=== PATIENT | female | born 1960 | race African-American/Black ===

== ENCOUNTER → 2018-10-02 | Outpatient (CLI) | payer OTHER ==
[2018-10-02 09:33] LABS: ABSOLUTE EOSINOPHILS # (AUTO) 0.1 10^3/uL (0.0-0.6); ABSOLUTE LYMPHOCYTES (AUTO) 1.5 10^3/uL (0.5-4.7); ABSOLUTE MONOCYTES (AUTO) 0.3 10^3/uL (0.1-1.4); ABSOLUTE NEUT (AUTO) 2.3 10^3/uL (1.7-8.2); BASOPHILS % (AUTO) 1.2 % (0-2); EOSINOPHILS % (AUTO) 2.4 % (0-6); HEMATOCRIT 31.7 % (36.0-47.0); HEMOGLOBIN 10.5 g/dL (12.0-15.5); LYMPHOCYTES % (AUTO) 35.8 % (13-45); MEAN CORPUSCULAR HEMOGLOBIN 27.9 pg (27.0-33.4); MEAN CORPUSCULAR HGB CONC 33.1 g/dL (32.0-36.0); MEAN CORPUSCULAR VOLUME 84 fl (80-97); MONOCYTES % (AUTO) 7.1 % (3-13); PLATELET COUNT 266 10^3/uL (150-450); RED BLOOD COUNT 3.76 10^6/uL (3.72-5.28); RED CELL DISTRIBUTION WIDTH 14.7 % (11.5-14.0); SEGMENTED NEUTROPHILS % (AUTO) 53.5 % (42-78); TOTAL CELLS COUNTED % (AUTO) 100 %; WHITE BLOOD COUNT 4.3 10^3/uL (4.0-10.5)
[2018-10-02 09:57] LABS: ALBUMIN 3.7 g/dL (3.5-5.0); ALKALINE PHOSPHATASE 74 U/L (38-126); ANION GAP 6 (5-19); ASPARTATE AMINO TRANSFERASE 20 U/L (14-36); BILIRUBIN,DIRECT 0.3 mg/dL (0.0-0.4); BILIRUBIN,TOTAL 0.4 mg/dL (0.2-1.3); BLOOD UREA NITROGEN 15 mg/dL (7-20); CARBON DIOXIDE 30 mmol/L (22-30); CHLORIDE 106 mmol/L (98-107); CHOLESTEROL 178.28 mg/dL (0-200); GLUCOSE 110 mg/dL (75-110); POTASSIUM 4.7 mmol/L (3.6-5.0); TOTAL PROTEIN 6.9 g/dL (6.3-8.2); TRIGLYCERIDES 66 mg/dL (<150)
[2018-10-02 10:07] LABS: DIRECT LDL 126 mg/dL (<100)
== END ==
LOC: CCC 08:43
DX: Z00.00 Encounter for general adult medical examination without abnormal findings (principal)
CPT/HCPCS: 36415; 80053; 80061; 83036; 84443; 85025

== ENCOUNTER → 2018-10-24 | Outpatient (CLI) | payer OTHER ==
[2018-10-24 10:26] LABS: ABSOLUTE EOSINOPHILS # (AUTO) 0.1 10^3/uL (0.0-0.6); ABSOLUTE LYMPHOCYTES (AUTO) 1.6 10^3/uL (0.5-4.7); ABSOLUTE MONOCYTES (AUTO) 0.3 10^3/uL (0.1-1.4); EOSINOPHILS % (AUTO) 2.8 % (0-6); HEMATOCRIT 32.1 % (36.0-47.0); HEMOGLOBIN 10.6 g/dL (12.0-15.5); LYMPHOCYTES % (AUTO) 39.4 % (13-45); MEAN CORPUSCULAR HEMOGLOBIN 27.7 pg (27.0-33.4); MEAN CORPUSCULAR VOLUME 84 fl (80-97); MONOCYTES % (AUTO) 8.1 % (3-13); PLATELET COUNT 262 10^3/uL (150-450); RED BLOOD COUNT 3.83 10^6/uL (3.72-5.28); RED CELL DISTRIBUTION WIDTH 14.5 % (11.5-14.0); SEGMENTED NEUTROPHILS % (AUTO) 48.7 % (42-78); TOTAL CELLS COUNTED % (AUTO) 100 %; WHITE BLOOD COUNT 4.1 10^3/uL (4.0-10.5)
[2018-10-24 11:32] LABS: FOLATE 11.7 ng/mL (>2.76)
== END ==
LOC: OD 09:24
DX: D64.9 Anemia, unspecified (principal)
CPT/HCPCS: 36415; 82607; 82746; 83090; 83921; 85025

== ENCOUNTER → 2018-12-18 | Outpatient (CLI) | payer OTHER ==
[2018-12-18 13:11] LABS: ABSOLUTE BASOPHILS # (AUTO) 0.1 10^3/uL (0.0-0.2); ABSOLUTE EOSINOPHILS # (AUTO) 0.1 10^3/uL (0.0-0.6); ABSOLUTE MONOCYTES (AUTO) 0.4 10^3/uL (0.1-1.4); ABSOLUTE NEUT (AUTO) 2.5 10^3/uL (1.7-8.2); BASOPHILS % (AUTO) 1.2 % (0-2); EOSINOPHILS % (AUTO) 2.5 % (0-6); HEMATOCRIT 32.1 % (36.0-47.0); HEMOGLOBIN 10.7 g/dL (12.0-15.5); LYMPHOCYTES % (AUTO) 39.6 % (13-45); MEAN CORPUSCULAR HEMOGLOBIN 27.9 pg (27.0-33.4); MEAN CORPUSCULAR HGB CONC 33.4 g/dL (32.0-36.0); MEAN CORPUSCULAR VOLUME 84 fl (80-97); MONOCYTES % (AUTO) 8.4 % (3-13); PLATELET COUNT 257 10^3/uL (150-450); RED BLOOD COUNT 3.85 10^6/uL (3.72-5.28); RED CELL DISTRIBUTION WIDTH 15.5 % (11.5-14.0); SEGMENTED NEUTROPHILS % (AUTO) 48.3 % (42-78); TOTAL CELLS COUNTED % (AUTO) 100 %; WHITE BLOOD COUNT 5.1 10^3/uL (4.0-10.5)
[2018-12-18 13:23] LABS: IRON(TIBC) 91.8 ug/dL (37-170)
[2018-12-18 14:01] LABS: FERRITIN 8.75 ng/mL (11.1-264.0)
[2018-12-18 14:34] LABS: FOLATE > 20.00 ng/mL (>2.76)
== END ==
LOC: CCC 12:23
DX: D64.9 Anemia, unspecified (principal)
CPT/HCPCS: 36415; 82607; 82728; 82746; 83090; 83540; 83550; 85025

== ENCOUNTER 2019-09-02 17:03 | Emergency (ER) | payer OTHER ==
--- NOTE | 2019-09-02 20:01 | RADIOLOGY REPORT (SQ) ---
EXAM DESCRIPTION: ANKLE LEFT COMPLETE IMAGES COMPLETED DATE/TIME: 09/02/2019 6:40 pm REASON FOR STUDY: pain ankle COMPARISON: None. NUMBER OF VIEWS: Three views. TECHNIQUE: AP, lateral, and oblique radiographic images acquired of the left ankle. LIMITATIONS: None. FINDINGS: MINERALIZATION: Normal. BONES: No acute fracture or dislocation. No worrisome bone lesions. JOINTS: No effusions. SOFT TISSUES: No soft tissue swelling. No foreign body. OTHER: No other significant finding. IMPRESSION: NEGATIVE STUDY OF THE LEFT ANKLE. NO RADIOGRAPHIC EVIDENCE OF ACUTE INJURY. TECHNICAL DOCUMENTATION: JOB ID: [id number] [employer]- All Rights Reserved Reading location - IP/workstation name: [id number]
--- NOTE | 2019-09-02 20:03 | ER Document Report ---
ED Extremity Problem, Lower - General Chief Complaint: Ankle Pain Stated Complaint: LEFT ANKLE PAIN,HEADACHE Time Seen by Provider: 09/02/19 19:16 Primary Care Provider: [facility] [Primary Care Provider] - Follow up as needed Mode of Arrival: Wheelchair Information source: Patient Notes: Patient is a 59-year-old female comes emergency room complaining of left ankle pain. Patient states is been bothering her for about a month but then it went away for little while and then came back this past Tuesday and she is been unable to ambulate well with that at all. Patient has a history of bilateral lower extremity pedal edema and was recently put on water pill for that. She denies any known traumatic events. But states that it is difficult for her to stand on her left ankle. Patient states that the left ankle when she stands up causes so much pain she wants to fall. Again the only other medical problem patient admits to his history of hypertension with lower extremity edema. TRAVEL OUTSIDE OF THE [place] IN LAST 30 DAYS: No - HPI Patient complains to provider of: Pain, Swelling. No: Injury Location: Ankle Occurred: Other - 1 month Where: Other - Unknown Onset/Duration: Gradual, Worse Quality of pain: Sharp, Stabbing, Throbbing Severity: Moderate Pain Level: 3 Context: Other - Unknown Recent injury: No Exacerbated by: Walking, Other - Weightbearing Relieved by: Rest - Related Data Allergies/Adverse Reactions: No Known Allergies Allergy (Verified 09/02/19 19:11) Past Medical History - General Information source: Patient - Social History Smoking Status: Never Smoker Chew tobacco use (# tins/day): No Frequency of alcohol use: None Drug Abuse: None Lives with: Family Family History: Reviewed & Not Pertinent, Arthritis, DM, Hypertension, Malignancy, Thyroid Disfunction Patient has homicidal ideation: No Malignancy Medical History: Reports: Hx Bone Cancer GI Medical History: Reports: Hx Gastroesophageal Reflux Disease Musculoskeletal Medical History: Reports Hx Arthritis - knee, Reports Hx Musculoskeletal Deformity - Heel spurs, Reports Hx Musculoskeletal Trauma Traumatic Medical History: Reports: Hx Fractures - Fractured foot Past Surgical History: Reports: Hx Orthopedic Surgery - foot surgery, heel spur, Hx Tubal Ligation - Immunizations Hx Diphtheria, Pertussis, Tetanus Vaccination: Yes - unknown Review of Systems - Review of Systems Constitutional: No symptoms reported EENT: No symptoms reported Cardiovascular: No symptoms reported Respiratory: No symptoms reported Gastrointestinal: No symptoms reported Genitourinary: No symptoms reported Female Genitourinary: No symptoms reported Musculoskeletal: Joint pain, Leg swelling, Ankle swelling. denies: Joint swelling Skin: No symptoms reported Hematologic/Lymphatic: No symptoms reported Neurological/Psychological: No symptoms reported -: Yes All other systems reviewed and negative Physical Exam - Vital signs Vitals: Temp Pulse Resp BP Pulse Ox 98.4 F 63 20 108/68 96 09/02/19 17:44 09/02/19 17:44 09/02/19 17:44 09/02/19 17:44 09/02/19 17:44 Interpretation: Hypotensive - Notes Notes: PHYSICAL EXAMINATION: GENERAL: Patient is a 59-year-old female who is in no apparent distress on examination tonight. She is morbidly obese. 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 HEAD: Atraumatic, normocephalic. LUNGS: Breath sounds clear to auscultation bilaterally and equal. No wheezes rales or rhonchi. HEART: Regular rate and rhythm without murmurs Musculoskeletal: Examination patient's area of concern is her left ankle. After taking patient's shoes and socks off is noted the patient has 1+ pitting edema bilaterally. Further evaluation shows that she has good circulation in the lower extremities with 2+ dorsalis pedal pulse positive posterior tibial pulses and a good popliteal pulse. Patient has flexion and extension of the ankle passively as well as actively. There is no noticeable swelling at the ankle itself. Her point of tenderness is at the junction between the distal tib-fib and the metatarsals of the left foot. NEUROLOGICAL: Cranial nerves grossly intact. Normal speech, normal gait. Normal sensory, motor exams PSYCH: Normal mood, normal affect. SKIN: Warm, Dry, normal turgor, no rashes or lesions noted. Course - Re-evaluation Re-evalutation: 09/02/19 20:10 Patient x-ray came back negative for any acute findings. At this point I believe patient has a tendinitis in her ankle secondary to probably her weight. Work on Deepak wrap and will put her on a small steroid taper for couple of days and she will follow-up with orthopedist if it continues to bother her. She does have a starting of a another spur on her heel. This I do not believe is big enough to cause a problem at this time. - Vital Signs Vital signs: Temp Pulse Resp BP Pulse Ox 98.4 F 63 20 108/68 96 09/02/19 17:44 09/02/19 17:44 09/02/19 17:44 09/02/19 17:44 09/02/19 17:44 Procedures - Immobilization Left Anterior Ankle Time completed: 20:12 Pre-Proc Neuro Vasc Exam: Normal Immobilizer type: Deepak wrap Performed by: PCT Post-Proc Neuro Vasc Exam: Normal Alignment checked and good: Yes Discharge - Discharge Clinical Impression: Left ankle tendinitis Ankle sprain Qualifiers: Encounter type: initial encounter Involved ligament of ankle: unspecified ligament Laterality: left Qualified Code(s): S93.402A - Sprain of unspecified ligament of left ankle, initial encounter Condition: Stable Disposition: HOME, SELF-CARE Instructions: Ice Packs ([facility]), Sprained Ankle ([facility]) Additional Instructions: As we discussed I believe you have a little tendinitis in the ankle. Completion of the small steroid taper for a couple of days. Ice to the area 3 times a day. Use the Deepak wrap only when up and ambulatory do not sleep with it. As I have also instructed you pharmacies have what I call an Deepak sock it has the toes cut out in the heel cut out and looks like the material that an Deepak wrap is made up. This will give you some support at anterior portion of the ankle where you hurt. Again you do not sleep with this one on either. You need to ice that ankle down after you get home at night and before going to bed. You may also contact the orthopedic pin I am going to give you to see if they can accommodate you if the pain continues on. Prescriptions: Methylprednisolone [Medrol Dosepack (4 mg/Tab) 21 Tab/Dosepak] 4 mg PO ASDIR PRN 6 Days #21 [id number] PRN Reason: Forms: Return to Work Referrals: [facility] [Primary Care Provider] - Follow up as needed
[2019-09-02 20:24] VITALS: BP 114/69
== END 2019-09-02 20:24 | disposition home or self-care (01) ==
LOC: ER 17:03
DX: S93.402A Sprain of unspecified ligament of left ankle, initial encounter (principal); M25.572 Pain in left ankle and joints of left foot; R51 Headache; R60.0 Localized edema; X58.XXXA Exposure to other specified factors, initial encounter; E66.01 Morbid (severe) obesity due to excess calories; I10 Essential (primary) hypertension
CPT/HCPCS: 99283

== ENCOUNTER → 2020-02-25 | Outpatient (CLI) | payer OTHER ==
[2020-02-25 10:12] LABS: ABSOLUTE EOSINOPHILS # (AUTO) 0.1 10^3/uL (0.0-0.6); ABSOLUTE LYMPHOCYTES (AUTO) 1.4 10^3/uL (0.5-4.7); ABSOLUTE MONOCYTES (AUTO) 0.3 10^3/uL (0.1-1.4); ABSOLUTE NEUT (AUTO) 1.8 10^3/uL (1.7-8.2); BASOPHILS % (AUTO) 0.9 % (0-2); EOSINOPHILS % (AUTO) 1.8 % (0-6); HEMATOCRIT 30.6 % (36.0-47.0); HEMOGLOBIN 10.1 g/dL (12.0-15.5); LYMPHOCYTES % (AUTO) 39.2 % (13-45); MEAN CORPUSCULAR HEMOGLOBIN 27.4 pg (27.0-33.4); MEAN CORPUSCULAR HGB CONC 32.9 g/dL (32.0-36.0); MEAN CORPUSCULAR VOLUME 83 fl (80-97); MONOCYTES % (AUTO) 7.4 % (3-13); PLATELET COUNT 267 10^3/uL (150-450); RED BLOOD COUNT 3.68 10^6/uL (3.72-5.28); RED CELL DISTRIBUTION WIDTH 14.7 % (11.5-14.0); SEGMENTED NEUTROPHILS % (AUTO) 50.7 % (42-78); TOTAL CELLS COUNTED % (AUTO) 100 %; WHITE BLOOD COUNT 3.6 10^3/uL (4.0-10.5)
[2020-02-25 10:30] LABS: APPEARANCE,URINE SLIGHTLY-CLOUDY; BILIRUBIN,URINE NEGATIVE (NEGATIVE); COLOR,URINE YELLOW; GLUCOSE, URINE NEGATIVE (NEGATIVE); KETONES,URINE NEGATIVE (NEGATIVE); LEUKOCYTE ESTERASE,URINE NEGATIVE (NEGATIVE); NITRITE,URINE NEGATIVE (NEGATIVE); PROTEIN,URINE >=500 mg/dL (NEGATIVE); URINE SPECIFIC GRAVITY 1.027
[2020-02-25 10:39] LABS: ALBUMIN 3.6 g/dL (3.5-5.0); ALKALINE PHOSPHATASE 83 U/L (38-126); ASPARTATE AMINO TRANSFERASE 20 U/L (14-36); BILIRUBIN,DIRECT 0.2 mg/dL (0.0-0.4); BILIRUBIN,TOTAL 0.5 mg/dL (0.2-1.3); BLOOD UREA NITROGEN 15 mg/dL (7-20); CALCIUM 8.8 mg/dL (8.4-10.2); CHOLESTEROL 183.51 mg/dL (0-200); GLUCOSE 106 mg/dL (75-110); POTASSIUM 4.4 mmol/L (3.6-5.0); TOTAL PROTEIN 6.9 g/dL (6.3-8.2); TRIGLYCERIDES 89 mg/dL (<150)
[2020-02-25 10:44] LABS: CARBON DIOXIDE 36 mmol/L (22-30); CHLORIDE 105 mmol/L (98-107)
[2020-02-25 10:47] LABS: ANION GAP 2 (5-19)
[2020-02-25 10:49] LABS: DIRECT LDL 112 mg/dL (<100)
== END ==
LOC: CCC 09:14
PROVIDERS: ATTEND Family Medicine
DX: Z13.9 Encounter for screening, unspecified (principal)
CPT/HCPCS: 36415; 80053; 80061; 81001; 83036; 84443; 85025